=== PATIENT | female | born 1995 | race Caucasian/White ===

== ENCOUNTER 2017-09-19 01:24 | Emergency (ER) | payer OTHER ==
[~2017-09-19] VITALS: Ht 167.6 cm; Wt 74.8 kg
[~2017-09-19 01:24] MED LIST: IBUP800 PO; OXYACE5T PO
[2017-09-19] MEDS ORDERED: Amoxicillin500 MG PO (02:57)
== END 2017-09-19 03:11 | disposition home or self-care (01) ==
LOC: ER 01:24
DX: K02.9 Dental caries, unspecified (principal); Z88.1 Allergy status to other antibiotic agents
CPT/HCPCS: 99283